=== PATIENT | male | born 1970 | race Caucasian/White ===

== ENCOUNTER 2018-01-20 15:30 | Emergency (ER) | payer OTHER, MEDICAID, SELFPAY ==
[2018-01-20 15:32] VITALS: BP 109/68; PULSE 72; RESP 16; TEMP 36.8; O2SAT 98; BMI 25.7
--- NOTE | 2018-01-20 16:17 | CT_ITS ---
STUDY: CT BRAIN WITHOUT CONTRAST REASON FOR EXAM: Male, 47 years old. Left sided vision changes of which have subsequently resolved. RADIATION DOSAGE (If Supplied By Facility): CTDIvol = ( 44.99 ) mGy, DLP = ( 745.49 ) mGycm TECHNIQUE: Transaxial CT imaging of the brain was performed without administration of intravenous contrast material. Multiplanar reformations are submitted for interpretation. Individualized dose optimization techniques were used for this CT. COMPARISON: Prior comparison studies are not available for review at this time. FINDINGS: Normal soft tissue structures. Normal calvarium. Normal size ventricles and extra-axial spaces for the patient's age. Normal white matter tracts of the cerebral hemispheres. Normal basal ganglia and thalami. Normal brainstem. Normal cerebellum. There is no intracranial hemorrhage. There are no findings of an acute ischemic infarction. Normal visualized paranasal sinuses. CT/Brain/Head without Contrast IMPRESSION: No CT evidence of acute hemorrhage. Electronically Signed: Christine Virgen MD at 16:52 EDT , Service support ,
--- NOTE | 2018-01-20 16:19 | ED.VISSUMM ---
- ER Visit Summary Date of Service: 01/20/18 Chief Complaint: Visual changes History of Present Illness: The patient is a 47 M who presents with visual disturbance that occurred today. Patient states that he lost part of his vision of his left eye while he was sitting talking to his . Patient states that his vision started to come back and he saw an L-shaped loss of vision. Patient states this became a C-shaped loss of vision. Patient states his vision has since returned and he currently does not have any visual problems. Patient denies any headaches. Patient denies any chest pain or shortness of breath. Patient does admit to some tinnitus in both ears. Patient denies any paresthesias or weakness. Physical Examination: Vital signs are stable. Patient is afebrile. Patient is in no acute distress. Cranial nerves II through XII are intact. Pupils are equal, round, and reactive to light bilaterally. Extraocular muscles are intact. Funduscopic examination is benign. Strength is 5/5 bilaterally upper and lower extremities. There are no sensory deficits noted. Heart was regular rate and rhythm. Lungs are clear and equal bilaterally. Neck is supple. Trachea is midline. There is no JVD noted. There are no carotid bruits auscultated. Abdomen is soft and nontender. The remaining physical exam is within normal limits. Test Results: CT scan of the brain was obtained. There is no acute intracranial abnormality noted. CBC and comprehensive metabolic profile were obtained and were within normal limits. Emergency Department Course and Treatment: Patient was advised of his lab and x-ray results. Patient was instructed to follow-up with his primary care physician in 3-5 days for further evaluation. Patient was advised he may need an ophthalmology consult. Patient understood and was agreeable with the plan. All questions were answered. Disposition: Discharged home Impression: Visual change, resolved This note was generated with [employer] dictation software. It may contain incorrect words, spelling, and punctuation that were not noted in review of the chart prior to signing ED Disposition - Plan for ED Patient: Disposition: Home or Assisted Living Chief Complaint: Vision Prob Diagnosis: Change in vision Instructions: ED Blurred Vision Referrals: Poncho Blanco MD [Primary Care Provider] -
--- NOTE | 2018-01-20 16:23 | ED.DCSUM_ITS ---
- ER Visit Summary Date of Service: 01/20/18 Chief Complaint: Visual changes History of Present Illness: The patient is a 47 M who presents with visual disturbance that occurred today. Patient states that he lost part of his vision of his left eye while he was sitting talking to his . Patient states that his vision started to come back and he saw an L-shaped loss of vision. Patient states this became a C-shaped loss of vision. Patient states his vision has since returned and he currently does not have any visual problems. Patient denies any headaches. Patient denies any chest pain or shortness of breath. Patient does admit to some tinnitus in both ears. Patient denies any paresthesias or weakness. Physical Examination: Vital signs are stable. Patient is afebrile. Patient is in no acute distress. Cranial nerves II through XII are intact. Pupils are equal, round, and reactive to light bilaterally. Extraocular muscles are intact. Funduscopic examination is benign. Strength is 5/5 bilaterally upper and lower extremities. There are no sensory deficits noted. Heart was regular rate and rhythm. Lungs are clear and equal bilaterally. Neck is supple. Trachea is midline. There is no JVD noted. There are no carotid bruits auscultated. Abdomen is soft and nontender. The remaining physical exam is within normal limits. Test Results: CT scan of the brain was obtained. There is no acute intracranial abnormality noted. CBC and comprehensive metabolic profile were obtained and were within normal limits. Emergency Department Course and Treatment: Patient was advised of his lab and x- ray results. Patient was instructed to follow-up with his primary care physician in 3-5 days for further evaluation. Patient was advised he may need an ophthalmology consult. Patient understood and was agreeable with the plan. All questions were answered. Disposition: Discharged home Impression: Visual change, resolved This note was generated with [employer] dictation software. It may contain incorrect words, spelling, and punctuation that were not noted in review of the chart prior to signing ED Disposition - Plan for ED Patient: Disposition: Home or Assisted Living Chief Complaint: Vision Prob Diagnosis: Change in vision Instructions: ED Blurred Vision Referrals: Poncho Blanco MD [Primary Care Provider] -
--- NOTE | 2018-01-20 16:37 | ED.RN ---
pt reported blurry vision/difficulty seeing from left eye that is now resolved. pt denies headache, n/t. reports, it seemed like how my gets when she has an aura before her headache, but i have no headache.
[2018-01-20 16:45] LABS: Absolute Lymphocyte Count 2.47 X10^3/ul (0.83-4.51); Absolute Neutrophil Count 4.4 X10^3/uL (2.0-7.7); Basophil# 0.02 X10^3/uL; Basophil% 0.3 % (0-1); Eosinophil# 0.16 X10^3/uL; Eosinophils% 2.1 % (0-5); Hematocrit 42.4 % (40-54); Hemoglobin 14.4 g/dl (13.0-16.5); Lymphocyte # 2.47 X10^3/ul (4.0); Lymphocyte % 31.9 % (19-41); Mean Corpuscular Hgb 31.7 pg (27.0-32.0); Mean Corpuscular Volume 93.4 fL (80-94); Mean Platelet Vol. 10.1 fl (6.2-12.0); Monocyte# 0.65 X10^3/uL; Monocyte% 8.4 % (0-10); Neutrophil # 4.43 X10^3/uL (2.7-7.7); Neutrophil % 57.2 % (47-70); Platelet Count 252 K/mm3 (150-450); RBC Distribution Width CV 13.6 % (11.6-14.6); RBC Distribution Width SD 46.7 fl (35.1-43.9); Red Blood Count 4.54 M/mm3 (4.6-6.2); White Blood Count 7.7 K/mm3 (4.4-11.0)
[2018-01-20 17:00] LABS: ALB/GLOB Ratio 1.2 RATIO (0.9-2.4); AST(SGOT) 19 U/L (15-37); Alanine Aminotransfer ALT/SGPT 28 U/L (16-61); Albumin, Serum 3.5 g/dL (3.2-5.0); Alkaline Phosphatase 55 U/L (45-117); Anion Gap 7 (5-15); BUN 12 mg/dL (7-18); BUN/Creat Ratio 15.3 RATIO (10-20); Calcium,Total 8.1 mg/dL (8.5-10.1); Chloride 110 mmol/L (98-107); Creatinine, Serum 0.78 mg/dL (0.70-1.30); EST Glomerular Filtration Rate 113 mL/min (>60); Est Glom Filt Rate - Afr Amer 136 mL/min (>60); Estimated Creatinine Clearance 99.09 ml/min; Glucose 97 mg/dL (74-106); POSITIVE COUNT NO; POSITIVE DIFFERENTIAL NO; POSITIVE MORPHOLOGY NO; Potassium 3.9 mmol/L (3.5-5.1); Protein, Total 6.5 g/dL (6.4-8.2); Sodium Level 142 mmol/L (136-145)
[2018-01-20 17:50] VITALS: BP 130/68; PULSE 68; RESP 18; O2SAT 99
== END 2018-01-20 17:51 | disposition home or self-care (01) ==
PROVIDERS: Emergency Provider Emergency Medicine; Family Provider Family Medicine; PCP Family Medicine
DX: H53.8 Other visual disturbances (principal); H53.132 Sudden visual loss, left eye; Z72.0 Tobacco use
CPT/HCPCS: 70450; 80053; 85025; 99284; A4216